=== PATIENT | female | born 1975 | race Caucasian/White ===

== ENCOUNTER → 2017-01-31 | Outpatient (CLI) | payer BC | LOC: CT 12:23 | DX: R51 Headache (principal); J34.1 Cyst and mucocele of nose and nasal sinus | CPT/HCPCS: 70450 ==

== ENCOUNTER 2022-06-10 17:16 | Emergency (ER) | payer BC ==
[2022-06-10 18:29] LABS: HEMOGLOBIN 14.9 gm/dl (12.3-15.3); RED BLOOD COUNT 4.88 M/UL (4.00-5.10); WHITE BLOOD COUNT 6.9 K/UL (4.5-11.0)
[2022-06-10 18:50] LABS: BUN/CREATININE RATIO 15 (0-10)
== END 2022-06-10 21:59 | disposition home or self-care (01) ==
LOC: ER1 17:16
PROVIDERS: Physician Assistant Medical
DX: R10.9 Unspecified abdominal pain (principal); E87.6 Hypokalemia; M54.9 Dorsalgia, unspecified; R10.811 Right upper quadrant abdominal tenderness; E11.9 Type 2 diabetes mellitus without complications; Z90.49 Acquired absence of other specified parts of digestive tract
CPT/HCPCS: 80053; 81001; 82550; 82553; 83690; 84484; 84703; 85025; 85379; 96361; 96374; 99284; J2405; Q9967